=== PATIENT | female | born 1975 | race Caucasian/White ===

== ENCOUNTER 2018-12-26 16:52 | Emergency (ER) | payer SELFPAY ==
[~2018-12-26] VITALS: Ht 157.5 cm; Wt 88.0 kg
[2018-12-26] MEDS ORDERED: MORPHINE SULFATE 4 MG/ML CPJ (NOT FOR IM USE) IV STA (18:38)
[2018-12-26] MEDS ORDERED: PANTOPRAZOLE SODIUM 40 MG/VIAL IV STA (18:38)
[2018-12-26] MEDS ORDERED: ONDANSETRON HCL 4MG/2ML INJ IV STA (18:38)
[2018-12-26] MEDS ORDERED: SODIUM CHLORIDE 0.9% 1,000 ML IV ONE (18:38)
[2018-12-26] MEDS ORDERED: PANTOPRAZOLE 80 MG in SODIUM CHLORIDE 0.9% 80 ML IV ONE (18:45)
[2018-12-26 19:20] LABS: BASOPHILS % 0.7 % (0.0-2.0); EOSINOPHILS % 1.8 % (0.0-5.0); HEMATOCRIT. 36.1 % (36.0-48.0); HEMOGLOBIN. 12.8 g/dL (12.0-16.0); MEAN CORPUSCULAR HEMOGLOBIN 30.9 pg (28.0-32.0); MEAN CORPUSCULAR VOLUME 87.6 fL (81.0-99.0); MEAN PLATELET VOLUME 8.4 fl (7.4-10.4); MONOCYTES % 6.1 % (2.0-8.0); NEUTROPHILS % 66.4 % (40.0-76.0); PLATELET 244 x1000/uL (130-400); RED BLOOD CELL COUNT 4.12 mill/uL (4.2-5.4); RED CELL DISTRIBUTION WIDTH 14.4 % (11.6-14.6)
[2018-12-26 19:21] LABS: INR 0.9; PROTHROMBIN TIME 9.5 sec (9.6-11.0)
[2018-12-26 19:24] LABS: CHLORIDE 101 mEq/L (98-107)
[2018-12-26 19:31] LABS: HCG SCREEN NEGATIVE
[2018-12-26] MEDS ORDERED: PANTOPRAZOLE SODIUM 40 MG/VIAL IV ONE (19:51)
[2018-12-26 20:06] LABS: CLARITY URINE CLEAR (CLEAR); COLOR URINE YELLOW (YELLOW); KETONES URINE NEGATIVE (NEGATIVE); LEUKOCYTE ESTERASE URINE NEGATIVE (NEGATIVE); NITRITE URINE NEGATIVE (NEGATIVE); OCCULT BLOOD URINE NEGATIVE (NEGATIVE); PROTEIN URINE NEGATIVE (NEGATIVE); SPECIFIC GRAVITY URINE 1.015 (1.005-1.030); UROBILINOGEN URINE 0.2 E.U./dL (0.2-1.0)
[2018-12-26] MEDS ORDERED: KETOROLAC 30MG/ML VIAL IV ONE (21:30)
[2018-12-26] MEDS ORDERED: MAGNESIUM/ALUMINUM HYDROXIDE/SIMETHICONE 30ML UDC PO ONE (23:15)
[2018-12-26] MEDS ORDERED: MORPHINE SULFATE 4 MG/ML CPJ (NOT FOR IM USE) IV ONE (23:15)
[2018-12-26] MEDS ORDERED: ONDANSETRON HCL 4MG/2ML INJ IV ONE (23:15)
[2018-12-27 00:51] VITALS: BP 116/65
== END 2018-12-27 01:03 | disposition home or self-care (01) ==
LOC: ER 16:52
DX: K29.70 Gastritis, unspecified, without bleeding (principal); J45.909 Unspecified asthma, uncomplicated; E11.9 Type 2 diabetes mellitus without complications; I10 Essential (primary) hypertension; Z90.49 Acquired absence of other specified parts of digestive tract; Z90.89 Acquired absence of other organs; Z90.710 Acquired absence of both cervix and uterus
CPT/HCPCS: 36415; 74176; 80053; 81003; 81025; 83690; 84484; 84703; 85025; 85610; 96361; 96365; 96375; 96376; 99284; C9113; J1885; J2270; J2405; J7030; J7050; Z7610

== ENCOUNTER 2020-10-17 19:59 | Inpatient (IN) | payer MEDICARE, MEDICAID ==
[~2020-10-17] VITALS: Ht 157.5 cm; Wt 95.7 kg
[2020-10-17] MEDS ORDERED: ACETAMINOPHEN WITH CODEINE 300/30MG TABLET PO ONE (22:30)
[2020-10-17] MEDS ORDERED: BACITRACIN ZINC OINT UDPKT TOP ONE (22:45)
[2020-10-17] MEDS ORDERED: LIDOCAINE HCL 1% 20ML VIAL (Pyxis) INJ INFIL ONE (22:45)
[2020-10-17] MEDS ORDERED: SODIUM CHLORIDE 0.9% 1000ML BAG (SEPSIS BOLUS) IV ONE (23:00)
[2020-10-18 00:38] LABS: CHLORIDE 105 mEq/L (98-107)
[2020-10-18 00:39] LABS: HEMATOCRIT. 35.3 % (36.0-48.0); MEAN CORPUSCULAR HEMOGLOBIN 29.8 pg (28.0-32.0); MEAN CORPUSCULAR VOLUME 87.8 fL (81.0-99.0); MEAN PLATELET VOLUME 8.5 fl (7.4-10.4); PLATELET 320 x1000/uL (130-400); RED BLOOD CELL COUNT 4.02 mill/uL (4.2-5.4); RED CELL DISTRIBUTION WIDTH 13.5 % (11.6-14.6)
[2020-10-18 00:46] LABS: PROTHROMBIN TIME 10.6 sec (9.6-11.0)
[2020-10-18] MEDS ORDERED: VANCOMYCIN 1 G PREMIX 200 ML IV SCH ×2 (01:15→14:00)
[2020-10-18] MEDS ORDERED: PIPERACILLIN/TAZOBACTAM 3.375GM/50ML PREMIX IV ONE (01:15)
[2020-10-18] MEDS ORDERED: PIPERACILLIN/TAZ 3.375G PREMIX 50 ML IV NR (01:15)
[2020-10-18 02:21] LABS: CLARITY URINE CLEAR (CLEAR); COLOR URINE YELLOW (YELLOW); KETONES URINE TRACE (NEGATIVE); LEUKOCYTE ESTERASE URINE NEGATIVE (NEGATIVE); NITRITE URINE NEGATIVE (NEGATIVE); OCCULT BLOOD URINE NEGATIVE (NEGATIVE); PH URINE 5.5 (4.5-8.0); PROTEIN URINE TRACE (NEGATIVE); SPECIFIC GRAVITY URINE 1.023 (1.005-1.030); UROBILINOGEN URINE 0.2 E.U./dL (0.2-1.0)
[2020-10-18] MEDS ORDERED: MORPHINE SULFATE 4 MG/ML CPJ (NOT FOR IM USE) IV ONE (02:45)
[2020-10-18 03:30] LABS: PLATELET ESTIMATE NORMAL
[2020-10-18] MEDS ORDERED: IOHEXOL-300 100 ML BOTTLE ONE (05:38)
[2020-10-18] MEDS: PIPERACILLIN/TAZ 3.375G PREMIX 50 ML IV SCH ×2 (07:15→21:59)
[2020-10-18] MEDS ORDERED: CLONIDINE 0.1MG TABLET PO PRN (07:15)
[2020-10-18] MEDS ORDERED: DOCUSATE SODIUM 100MG CAPSULE PO PRN (07:15)
[2020-10-18] MEDS ORDERED: MAGNESIUM/ALUMINUM HYDROXIDE/SIMETHICONE 30ML UDC PO PRN (07:15)
[2020-10-18] MEDS: ONDANSETRON HCL 4MG/2ML INJ IV PRN ×3 (08:55→21:59)
[2020-10-18] MEDS: ENOXAPARIN 40MG/0.4ML SYR SUBCUT SCH (08:56)
[2020-10-18] MEDS: HYDROMORPHONE HCL/PF 2MG/ML CPJ IV PRN (08:58)
[2020-10-18] MEDS ORDERED: BENZ2TAB7 MT (11:14)
[2020-10-18] MEDS ORDERED: QUET300T19 MT (11:15)
[2020-10-18] MEDS ORDERED: PRAV20TA57 MT (11:19)
[2020-10-18] MEDS ORDERED: LISI40TA13 PO (11:19)
[2020-10-18] MEDS ORDERED: RISP4TAB31 PO (11:19)
[2020-10-18] MEDS ORDERED: LEVO300T2 PO (11:19)
[2020-10-18] MEDS ORDERED: GABA-290 PO (11:19)
[2020-10-18] MEDS ORDERED: METO10TA3 PO (11:19)
[2020-10-18] MEDS ORDERED: BUSP10TA3 PO (11:19)
[2020-10-18] MEDS ORDERED: ALBU90AE2 (11:21)
[2020-10-18] MEDS ORDERED: AMLO10TA80 PO (11:21)
[2020-10-18] MEDS ORDERED: DULA0.75 SQ (11:23)
[2020-10-18] MEDS ORDERED: ASPI-1079 PO (11:23)
[2020-10-18] MEDS ORDERED: BROM3DRO OP (11:23)
[2020-10-18] MEDS: HYDROCODONE/ACETAMINOPHEN 5/325MG TABLET PO PRN ×2 (14:31→17:23)
[2020-10-18] MEDS ORDERED: METOCLOPRAMIDE HCL 10MG/2ML VIAL IV PRN (18:13)
[2020-10-18 23:59] VITALS: BP 153/91
[2020-10-19] VITALS: BP 153/91
[2020-10-19] MEDS: HYDROCODONE/ACETAMINOPHEN 5/325MG TABLET PO PRN (01:53)
[2020-10-19] MEDS: ACETAMINOPHEN 325MG TABLET PO PRN ×2 (01:55→21:24)
[2020-10-19] MEDS: VANCOMYCIN 1 G PREMIX 200 ML IV SCH ×3 (02:19→14:50)
[2020-10-19 04:00] VITALS: BP 128/71
[2020-10-19] MEDS: PIPERACILLIN/TAZOBACTAM 3.375 G in DEXT 5% WATER 50 ML IV SCH ×3 (06:05→21:25)
[2020-10-19 07:24] LABS: BASOPHILS % 0.5 % (0.0-2.0); EOSINOPHILS % 1.7 % (0.0-5.0); HEMATOCRIT. 33.5 % (36.0-48.0); HEMOGLOBIN. 11.7 g/dL (12.0-16.0); LYMPHOCYTES % 11.6 % (20.0-50.0); MEAN CORPUSCULAR HEMOGLOBIN 30.8 pg (28.0-32.0); MEAN PLATELET VOLUME 8.2 fl (7.4-10.4); MONOCYTES % 5.4 % (2.0-8.0); NEUTROPHILS % 80.8 % (40.0-76.0); PLATELET 270 x1000/uL (130-400); RED BLOOD CELL COUNT 3.81 mill/uL (4.2-5.4); RED CELL DISTRIBUTION WIDTH 13.4 % (11.6-14.6)
[2020-10-19 07:33] LABS: CHLORIDE 101 mEq/L (98-107)
[2020-10-19] MEDS: ENOXAPARIN 40MG/0.4ML SYR SUBCUT SCH (09:07)
[2020-10-19] MEDS: HYDROMORPHONE HCL/PF 2MG/ML CPJ IV PRN ×2 (11:21→21:27)
[2020-10-19] MEDS ORDERED: ALBUTEROL (0.083%) 2.5MG/3ML NEB HHN PRN (12:15)
[2020-10-19] MEDS ORDERED: ALBUTEROL 6.7GM HFA INHALER ORI PRN (12:15)
[2020-10-19] MEDS: GABAPENTIN 300MG CAPSULE PO SCH ×2 (13:41→21:24)
[2020-10-19] MEDS: AMLODIPINE 10MG TABLET PO SCH (13:42)
[2020-10-19] MEDS: LISINOPRIL 40MG TABLET PO SCH (13:43)
[2020-10-19] MEDS: METOCLOPRAMIDE HCL 10MG TABLET PO SCH ×3 (13:43→21:32)
[2020-10-19] MEDS ORDERED: LIDOCAINE HCL/PF 1% 10 MG/ML 5ML VIAL INL NR (14:00)
[2020-10-19] MEDS: BUSPIRONE HCL 10MG TABLET PO SCH (14:48)
[2020-10-19] MEDS: VANCOMYCIN 1250MG in DEXTROSE 5% WATER 250ML IV SCH (14:51)
[2020-10-19 20:00] VITALS: BP 100/61
[2020-10-19] MEDS ORDERED: POTASSIUM CHLORIDE 20MEQ TABLET SR PO SCH (20:00)
[2020-10-19] MEDS: ATORVASTATIN CALCIUM 20MG TABLET PO SCH (21:22)
[2020-10-19] MEDS: ONDANSETRON HCL 4MG/2ML INJ IV PRN (21:22)
[2020-10-19] MEDS: QUETIAPINE FUMARATE 50MG TABLET PO SCH (21:22)
[2020-10-19] MEDS: BENZTROPINE MESYLATE 2MG TABLET PO SCH (21:25)
[2020-10-20] VITALS: BP 92/48
[2020-10-20] MEDS: VANCOMYCIN 1250MG in DEXTROSE 5% WATER 250ML IV SCH ×2 (03:08→15:23)
[2020-10-20 04:00] VITALS: BP 94/56
[2020-10-20] MEDS: PIPERACILLIN/TAZOBACTAM 3.375 G in DEXT 5% WATER 50 ML IV SCH ×2 (06:16→14:14)
[2020-10-20] MEDS: GABAPENTIN 300MG CAPSULE PO SCH ×3 (06:23→21:57)
[2020-10-20 08:00] VITALS: BP 104/61
[2020-10-20] MEDS: ENOXAPARIN 40MG/0.4ML SYR SUBCUT SCH (08:48)
[2020-10-20] MEDS: METOCLOPRAMIDE HCL 10MG TABLET PO SCH ×4 (08:48→21:56)
[2020-10-20] MEDS: BUSPIRONE HCL 10MG TABLET PO SCH (08:48)
[2020-10-20] MEDS: AMLODIPINE 10MG TABLET PO SCH (08:49)
[2020-10-20] MEDS: LISINOPRIL 40MG TABLET PO SCH (08:49)
[2020-10-20] MEDS ORDERED: POTASSIUM CHLORIDE 20MEQ TABLET SR PO NR (11:00)
[2020-10-20 12:00] VITALS: BP 95/53
[2020-10-20 16:00] VITALS: BP 111/68
[2020-10-20 20:00] VITALS: BP 133/74
[2020-10-20] MEDS: QUETIAPINE FUMARATE 50MG TABLET PO SCH (21:56)
[2020-10-20] MEDS: BENZTROPINE MESYLATE 2MG TABLET PO SCH (21:56)
[2020-10-20] MEDS: ATORVASTATIN CALCIUM 20MG TABLET PO SCH (21:56)
[2020-10-20] MEDS: PIPERACILLIN/TAZOBACTAM 3.375 G in DEXT 5% WATER 100 ML IV SCH (21:56)
[2020-10-20] MEDS: ENOXAPARIN 30MG/0.3ML SYR SUBCUT SCH (21:57)
[2020-10-21] VITALS: BP 118/70
[2020-10-21] MEDS: PIPERACILLIN/TAZOBACTAM 3.375 G in DEXT 5% WATER 100 ML IV SCH ×4 (00:36→17:22)
[2020-10-21] MEDS: VANCOMYCIN 1250MG in DEXTROSE 5% WATER 250ML IV SCH (02:46)
[2020-10-21 04:00] VITALS: BP 125/70
[2020-10-21] MEDS: GABAPENTIN 300MG CAPSULE PO SCH ×4 (05:46→21:52)
[2020-10-21 08:00] VITALS: BP 103/68
[2020-10-21] MEDS: AMLODIPINE 10MG TABLET PO SCH (09:00)
[2020-10-21] MEDS: LISINOPRIL 40MG TABLET PO SCH (09:00)
[2020-10-21] MEDS: BUSPIRONE HCL 10MG TABLET PO SCH (09:48)
[2020-10-21] MEDS: METOCLOPRAMIDE HCL 10MG TABLET PO SCH ×4 (09:48→21:51)
[2020-10-21] MEDS: ENOXAPARIN 30MG/0.3ML SYR SUBCUT SCH (09:49)
[2020-10-21 11:03] LABS: CHLORIDE 103 mEq/L (98-107); HEMATOCRIT. 30.6 % (36.0-48.0); HEMOGLOBIN. 10.7 g/dL (12.0-16.0); MEAN CORPUSCULAR HEMOGLOBIN 31.3 pg (28.0-32.0); MEAN CORPUSCULAR VOLUME 89.4 fL (81.0-99.0); MEAN PLATELET VOLUME 8.1 fl (7.4-10.4); PLATELET 310 x1000/uL (130-400); RED BLOOD CELL COUNT 3.42 mill/uL (4.2-5.4); RED CELL DISTRIBUTION WIDTH 14.1 % (11.6-14.6)
[2020-10-21 12:00] VITALS: BP 101/56
[2020-10-21 16:00] VITALS: BP 114/70
[2020-10-21 17:02] LABS: PLATELET ESTIMATE NORMAL
[2020-10-21] MEDS ORDERED: DEXTROSE 50% WATER 50ML SYRINGE IV PRN (19:45)
[2020-10-21 20:00] VITALS: BP 139/74
[2020-10-21] MEDS: INSULIN LISPRO 100 UNITS/ML SUBCUT SCH (21:47)
[2020-10-21] MEDS: BENZTROPINE MESYLATE 2MG TABLET PO SCH (21:51)
[2020-10-21] MEDS: ATORVASTATIN CALCIUM 20MG TABLET PO SCH (21:51)
[2020-10-21] MEDS: QUETIAPINE FUMARATE 50MG TABLET PO SCH (21:51)
[2020-10-21] MEDS: BLOOD SUGAR DIAGNOSTIC STRIP TEST SCH (21:52)
[2020-10-22] VITALS: BP 122/73
[2020-10-22] MEDS: PIPERACILLIN/TAZOBACTAM 3.375 G in DEXT 5% WATER 100 ML IV SCH ×2 (01:41→06:13)
[2020-10-22 04:00] VITALS: BP 132/75
[2020-10-22] MEDS: GABAPENTIN 300MG CAPSULE PO SCH ×3 (06:14→22:35)
[2020-10-22] MEDS: BLOOD SUGAR DIAGNOSTIC STRIP TEST SCH ×4 (07:21→21:00)
[2020-10-22 08:00] VITALS: BP 121/78
[2020-10-22] MEDS: INSULIN LISPRO 100 UNITS/ML SUBCUT SCH ×4 (08:43→21:43)
[2020-10-22] MEDS: BUSPIRONE HCL 10MG TABLET PO SCH (09:07)
[2020-10-22] MEDS: METOCLOPRAMIDE HCL 10MG TABLET PO SCH ×4 (09:08→22:35)
[2020-10-22] MEDS: LISINOPRIL 40MG TABLET PO SCH (09:08)
[2020-10-22] MEDS: AMLODIPINE 10MG TABLET PO SCH (09:08)
[2020-10-22] MEDS: ENOXAPARIN 40MG/0.4ML SYR SUBCUT SCH (09:09)
[2020-10-22 12:00] VITALS: BP 128/72
[2020-10-22] MEDS: PIPERACILLIN/TAZOBACTAM 2.25 G in DEXTROSE 5% WATER 50 ML IV SCH ×2 (12:21→17:55)
[2020-10-22] MEDS: SODIUM CHLORIDE 0.9% 1,000 ML IV SCH (12:22)
[2020-10-22] MEDS: ACETAMINOPHEN 325MG TABLET PO PRN (13:03)
[2020-10-22 15:12] LABS: PHOSPHORUS 4.6 mg/dL (2.5-4.9)
[2020-10-22 16:00] VITALS: BP 111/75
[2020-10-22 20:00] VITALS: BP 115/76
[2020-10-22] MEDS: BENZTROPINE MESYLATE 2MG TABLET PO SCH (22:35)
[2020-10-22] MEDS: QUETIAPINE FUMARATE 50MG TABLET PO SCH (22:35)
[2020-10-22] MEDS: ATORVASTATIN CALCIUM 20MG TABLET PO SCH (22:35)
[2020-10-22 22:59] LABS: CLARITY URINE CLEAR (CLEAR); COLOR URINE YELLOW (YELLOW); KETONES URINE NEGATIVE (NEGATIVE); LEUKOCYTE ESTERASE URINE NEGATIVE (NEGATIVE); NITRITE URINE NEGATIVE (NEGATIVE); OCCULT BLOOD URINE TRACE (NEGATIVE); PROTEIN URINE NEGATIVE (NEGATIVE); SPECIFIC GRAVITY URINE 1.009 (1.005-1.030); UROBILINOGEN URINE 0.2 E.U./dL (0.2-1.0)
[2020-10-22 23:06] LABS: UCG SCREEN NEGATIVE
[2020-10-23] VITALS (7 sets, daily range): BP systolic 106–155; BP diastolic 60–93
[2020-10-23] MEDS: PIPERACILLIN/TAZOBACTAM 2.25 G in DEXTROSE 5% WATER 50 ML IV SCH ×4 (00:11→17:19)
[2020-10-23] MEDS: SODIUM CHLORIDE 0.9% 1,000 ML IV SCH ×3 (03:07→17:27)
[2020-10-23] MEDS: GABAPENTIN 300MG CAPSULE PO SCH ×3 (06:07→20:54)
[2020-10-23] MEDS: BLOOD SUGAR DIAGNOSTIC STRIP TEST SCH ×4 (06:08→20:56)
[2020-10-23 07:13] LABS: HEMATOCRIT. 31.9 % (36.0-48.0); HEMOGLOBIN. 10.9 g/dL (12.0-16.0); MEAN CORPUSCULAR HEMOGLOBIN 30.2 pg (28.0-32.0); MEAN CORPUSCULAR VOLUME 88.7 fL (81.0-99.0); MEAN PLATELET VOLUME 8.1 fl (7.4-10.4); PLATELET 329 x1000/uL (130-400); RED CELL DISTRIBUTION WIDTH 13.5 % (11.6-14.6)
[2020-10-23] MEDS: METOCLOPRAMIDE HCL 10MG TABLET PO SCH ×3 (08:57→17:19)
[2020-10-23] MEDS: BUSPIRONE HCL 10MG TABLET PO SCH (08:57)
[2020-10-23] MEDS: AMLODIPINE 10MG TABLET PO SCH (08:58)
[2020-10-23] MEDS: ENOXAPARIN 40MG/0.4ML SYR SUBCUT SCH (08:58)
[2020-10-23] MEDS: INSULIN LISPRO 100 UNITS/ML SUBCUT SCH ×4 (09:06→20:56)
[2020-10-23 09:49] LABS: PLATELET ESTIMATE NORMAL
[2020-10-23] MEDS: CLOPIDOGREL 75MG TABLET PO SCH (13:04)
[2020-10-23] MEDS ORDERED: VANCOMYCIN 500 MG PREMIX 100 ML IV SCH (14:00)
[2020-10-23] MEDS ORDERED: ALBUTEROL 6.7GM HFA INHALER ORI PRN (20:00)
[2020-10-23] MEDS ORDERED: LORAZEPAM 2MG/ML CPJ IV PRN (20:00)
[2020-10-23] MEDS: QUETIAPINE FUMARATE 50MG TABLET PO SCH (20:54)
[2020-10-23] MEDS: ATORVASTATIN CALCIUM 20MG TABLET PO SCH (20:54)
[2020-10-23] MEDS: METOCLOPRAMIDE HCL 5MG TABLET PO SCH (20:55)
[2020-10-23] MEDS: BENZTROPINE MESYLATE 2MG TABLET PO SCH (20:55)
[2020-10-23] MEDS ORDERED: METOCLOPRAMIDE HCL 5MG TABLET PO SCH (21:00)
[2020-10-24] VITALS: BP 133/72
[2020-10-24 04:00] VITALS: BP 127/73
[2020-10-24] MEDS: GABAPENTIN 300MG CAPSULE PO SCH ×2 (05:41→13:34)
[2020-10-24] MEDS: BLOOD SUGAR DIAGNOSTIC STRIP TEST SCH ×3 (05:46→16:45)
[2020-10-24] MEDS: INSULIN LISPRO 100 UNITS/ML SUBCUT SCH ×3 (06:19→17:15)
[2020-10-24 07:07] LABS: CHLORIDE 106 mEq/L (98-107)
[2020-10-24 07:11] LABS: HEMATOCRIT. 31.6 % (36.0-48.0); HEMOGLOBIN. 10.6 g/dL (12.0-16.0); MEAN CORPUSCULAR HEMOGLOBIN 30.2 pg (28.0-32.0); MEAN CORPUSCULAR VOLUME 89.8 fL (81.0-99.0); MEAN PLATELET VOLUME 7.9 fl (7.4-10.4); PLATELET 315 x1000/uL (130-400); RED BLOOD CELL COUNT 3.51 mill/uL (4.2-5.4); RED CELL DISTRIBUTION WIDTH 13.6 % (11.6-14.6)
[2020-10-24 08:00] VITALS: BP 118/66
[2020-10-24] MEDS: AMLODIPINE 10MG TABLET PO SCH (09:00)
[2020-10-24] MEDS: ENOXAPARIN 40MG/0.4ML SYR SUBCUT SCH (09:41)
[2020-10-24] MEDS: CLOPIDOGREL 75MG TABLET PO SCH (09:41)
[2020-10-24] MEDS: METOCLOPRAMIDE HCL 5MG TABLET PO SCH ×2 (09:41→17:00)
[2020-10-24] MEDS: BUSPIRONE HCL 10MG TABLET PO SCH (09:41)
[2020-10-24 12:00] VITALS: BP 160/89
[2020-10-24] MEDS: SODIUM CHLORIDE 0.9% 1,000 ML IV SCH ×2 (14:15→15:09)
[2020-10-24 16:00] VITALS: BP 129/102
[2020-10-24 17:12] VITALS: BP 129/102
[2020-10-24 19:43] LABS: PLATELET ESTIMATE NORMAL
== END 2020-10-24 18:05 | disposition home health service (06) | DRG 854 ==
LOC: ER 19:59 → 6EST 10-18 03:06 → EDBEDREQ 10-18 03:11 → EDBEDREQTM 10-18 03:11 → EDBEDREQSVC 10-18 03:11 → ENRESERV 10-18 07:13 → CANRESERV 10-18 07:13 → EDBEDREQSVC 10-18 07:38 → ENRESERV 10-18 21:48 → 5WST 10-23 11:05
PROVIDERS: ADMIT Hospitalist; ATTEND Hospitalist
PROC: 0D9Q0ZZ Drainage of Anus, Open Approach (ICD-10-PCS; principal; 2020-10-19)
DX: A41.9 Sepsis, unspecified organism (principal); K61.2 Anorectal abscess; L02.31 Cutaneous abscess of buttock; E87.2 Acidosis; N17.9 Acute kidney failure, unspecified; D68.59 Other primary thrombophilia; E11.9 Type 2 diabetes mellitus without complications; E03.9 Hypothyroidism, unspecified; F43.10 Post-traumatic stress disorder, unspecified; F25.9 Schizoaffective disorder, unspecified; D64.9 Anemia, unspecified; J45.909 Unspecified asthma, uncomplicated; I10 Essential (primary) hypertension; E87.6 Hypokalemia; R47.81 Slurred speech; R29.810 Facial weakness; T45.0X5A Adverse effect of antiallergic and antiemetic drugs, initial encounter; Y92.238 Other place in hospital as the place of occurrence of the external cause; Z90.710 Acquired absence of both cervix and uterus; Z90.49 Acquired absence of other specified parts of digestive tract; Z86.73 Personal history of transient ischemic attack (TIA), and cerebral infarction without residual deficits; Z79.899 Other long term (current) drug therapy; T43.95XA Adverse effect of unspecified psychotropic drug, initial encounter
CPT/HCPCS: 36415; 70551; 72193; 76770; 80048; 80053; 80202; 81003; 81025; 82550; 82962; 83036; 83605; 83735; 84100; 85025; 99291; J1170; J1650; J1815; J2060; J2270; J2405; J2543; J2765; J3370; J3490; J7030; J7040; J7060; J8597; Q9967

== ENCOUNTER 2024-02-07 18:21 | Emergency (ER) | payer MEDICARE, MEDICAID ==
[~2024-02-07] VITALS: Ht 167.6 cm; Wt 77.0 kg
[~2024-02-07 18:21] MED LIST: ALBU90AE3; AMLO10TA80 PO; ASPI-1079 PO; BENZ2TAB65 MT; BROM3DRO OP; BUSP10TA3 PO; CEPH500C2 PO; DULA0.75 SQ; GABA-290 PO; IBUP-2029 PO; LEVO300T2 PO; LISI40TA13 PO; METO10TA3 PO; PRAV20TA57 MT; QUET300T20 MT; RISP4TAB31 PO; SULF1TAB48 PO
[2024-02-07 18:32] VITALS: BP 123/90; PULSE 110; RESP 16; TEMP 98.6; O2SAT 100
[2024-02-07] MEDS ORDERED: IBUP-2029 MT (20:25)
[2024-02-07] MEDS: KETOROLAC 30MG/ML VIAL IM ONE (21:00)
== END 2024-02-07 22:41 | disposition home or self-care (01) ==
LOC: ER 18:21
DX: M79.661 Pain in right lower leg (principal); I10 Essential (primary) hypertension; E11.9 Type 2 diabetes mellitus without complications; J45.909 Unspecified asthma, uncomplicated; Z79.899 Other long term (current) drug therapy; Z90.49 Acquired absence of other specified parts of digestive tract; Z63.9 Problem related to primary support group, unspecified; Z90.710 Acquired absence of both cervix and uterus
CPT/HCPCS: 99285; 93971; 73590; 96372; J1885